=== PATIENT | male | born 1975 | race Caucasian/White ===

== ENCOUNTER 2018-11-25 15:03 | Emergency (ER) | payer OTHER, SELFPAY ==
[2018-11-25] MEDS ORDERED: Acetaminophen/Codeine 30-300mg Tablet ONE (15:32)
--- NOTE | 2018-11-25 16:23 | CT ---
CT OF THE BRAIN WITHOUT CONTRAST: Date: 11/25/[address] of the brain was done with axial slices and reconstructions in the sagittal and coronal luzmaria john. FINDINGS: The ventricles are normal in size with no shift. No intracranial bleeding or extra-axial hematoma see n. There is no sign of mass, edema, or stroke. The skull appears intact with no fracture. The sphenoi d sinus is clear, as are the visible paranasal sinuses and mastoid air cells. IMPRESSION: No acute intracranial finding. Report called to Dr. Morrissey at 1607 hours on 11/25/18. CODE CR. POS: HOME
--- NOTE | 2018-11-25 16:26 | CT ---
CT CERVICAL SPINE: 11/25/2018 TECHNIQUE: A spiral CT of the cervical spine was done using axial slices, followed by coronal and sagittal recon structions. FINDINGS: No fracture, dislocation, or acute bony change is seen. The C1 to dens distance is normal, and the s oft tissues are normal in thickness. There is some mild disk space narrowing at C6-C7. Posterior os teophytes are fairly prominent at C5 and below. There is loss of the normal cervical lordosis, which may be due to muscle spasm. Findings by level follow: C1-C2: No acute findings. C2-C3: No acute findings. C3-C4: Very minor central bulge of the disk, which causes no significant impingement. C4-C5: No acute findings. C5-C6: Small disk osteophyte complex posteriorly without gross impingement. Foramina are patent. C6-C7: Disk osteophyte complex that does efface the thecal sac. The AP diameter of the spinal canal is about 9 mm at this level. Additionally, there is moderate bilateral foraminal stenosis due to os teophytes. C7-T1: No acute findings. T1-T2: No acute findings. The lung apices are clear, and there is no sign of pneumothorax. IMPRESSION: 1. Straightening of the cervical spine, possibly due to spasm. No fracture or dislocation. 2. Mild central canal stenosis at C6-C7 due to a small, broad-based disk osteophyte complex. Also, moderate bilateral foraminal narrowing here. 3. Other findings as listed above. Report discussed with Dr. Morrissey at 1607 hours on 11/25/2018. CODE CR POS: HOME
--- NOTE | 2018-11-25 16:27 | RAD ---
LEFT SHOULDER THREE VIEWS: 11/25/2018 FINDINGS: No acute fracture, dislocation, or AC joint widening is seen. There is evidence of an old healed dis zaria clavicular fracture. The visible adjacent ribs appear intact. IMPRESSION: No acute findings. POS: HOME
== END 2018-11-25 16:18 | disposition home or self-care (01) ==
LOC: BURERS 15:03
DX: T20.112A Burn of first degree of left ear [any part, except ear drum], initial encounter (principal); S10.93XA Contusion of unspecified part of neck, initial encounter; S09.90XA Unspecified injury of head, initial encounter; S40.012A Contusion of left shoulder, initial encounter; W01.198A Fall on same level from slipping, tripping and stumbling with subsequent striking against other object, initial encounter; X08.8XXA Exposure to other specified smoke, fire and flames, initial encounter; Y92.61 Building [any] under construction as the place of occurrence of the external cause
CPT/HCPCS: 70450; 72125